=== PATIENT | female | born 1955 | race Caucasian/White ===

== ENCOUNTER 2016-07-24 08:57 | Emergency (ER) | payer BC ==
[~2016-07-24] VITALS: Ht 167.6 cm; Wt 119.2 kg
[~2016-07-24 08:57] MED LIST: ASPIRIN325 MG PO; CARDIZEM120 MG PO; CARVEDILOL6.25 MG PO; CLOPIDOGREL75 MG PO; DILAUDID2 MG PO; HYDROCHLOROTHIA25 MG PO; IRON325 MG PO; LANTUS 10100 UNITS/ SC; LEVAQUIN750 MG PO; LIDODERM 5% P1 PATCH TD; LISINOPRIL20 MG PO; LISINOPRIL30 MG PO; METFORMIN HCL1000 MG PO; MOBIC15 MG PO; NOVOLOG 10100 UNITS/ SC; PERCOCET 5/31 TABLET PO; PLAQUENIL200 MG PO; PRENATAL TABLE1 EAC3 PO; PROTONIX20 MG PO; SYNTHROID100 MCG PO; ULTRAM50 MG PO; VITAMIN D31000 UNIT PO; ZOCOR10 MG PO; ZOLOFT100 MG PO; ZOLOFT50 MG PO
[2016-07-24 09:33] LABS: POINT-OF-CARE METER ID UU13113702
[2016-07-24 09:38] LABS: HEMATOCRIT 33.9 % (36.0-46.0); MCH 26.2 PG (29.0-34.0); MCHC 32.7 G/DL (30.0-36.0); MEAN PLAT.VOLUME 10.3 uM^3 (9.5-12.4); PLATELET COUNT 363 K/uL (156-360); RBC DIS.WIDTH-CV 12.8 % (11.8-14.6); RBC DIS.WIDTH-SD 36.8 % (39-53); RED BLOOD COUNT 4.24 M/uL (3.80-5.20); WHITE BLOOD COUNT 25.4 K/uL (4.1-10.2)
[2016-07-24 09:49] LABS: CHLORIDE 94 mEq/L (99-109); POTASSIUM 4.4 mEq/L (3.7-5.4); SODIUM 127 mEq/L (136-147)
[2016-07-24 09:50] LABS: GLUCOSE 166 mg/dL (70-99)
[2016-07-24 09:52] LABS: ANION GAP 11 MEQ/L (2-14)
[2016-07-24 09:54] LABS: GFR ESTIMATE (CALCULATED) 29 mL/min/
[2016-07-24 09:55] LABS: UREA NITROGEN (BUN) 35 mg/dL (9-23)
[2016-07-24 10:35] LABS: EOSINOPHIL (%) 0.3 % (0-5); EOSINOPHIL COUNT 0.1 K/uL (0-0.3); HEMATOLOGY COMMENT 1 SMEAR COMPATIBLE; IMMATURE GRANULOCYTE (%) 1.2 % (0.0-0.7); LYMPHOCYTE COUNT 1.3 K/uL (1.0-2.8); MONOCYTE (%) 8.6 % (3-12); MONOCYTE COUNT 2.2 K/uL (0-0.8); NEUTROPHIL (%) 84.5 % (45-76); NEUTROPHIL COUNT 21.5 K/uL (1.8-6.4); USER ID STC
[2016-07-24] MEDS ORDERED: VITAMIN D33000 UNIT PO (12:56)
[2016-07-24] MEDS ORDERED: ZOCOR40 MG PO (12:57)
[2016-07-24] MEDS ORDERED: CLINDAMYCIN HC300 MG PO (13:00)
[2016-07-24] MEDS ORDERED: LOPID600 MG PO (13:02)
[2016-07-24] MEDS ORDERED: MAGNESIUM250 MG PO (13:02)
[2016-07-24] MEDS ORDERED: CYANOCOBALAM1000 MCG PO (13:02)
[2016-07-24] MEDS ORDERED: PROVENTIL,2.5 MG/3 M IH (13:04)
[2016-07-24 14:45] LABS: ADD MIUA? YES; BILIRUBIN SMALL; BLOOD NEGATIVE; COLOR DK YELLOW ((YELLOW)); GLUCOSE (STRIP) NEGATIVE; KETONES TRACE; LEUKOCYTES SMALL; NITRITE NEGATIVE; PROTEIN (STRIP) 30; SPECIFIC GRAVITY 1.029 (1.000-1.030); UROBILINOGEN 0.2 MG/DL (0.2-1.0)
[2016-07-24 14:58] LABS: CASTS PRESENT /LPF; EPITHELIAL CELLS 1+; HYALINE CASTS 20-25 /LPF
[2016-07-24 14:59] LABS: AMORPHOUS URATES CRYSTALS 1+; BACTERIA RARE; CRYSTALS PRESENT; MUCUS RARE; RED BLOOD CELLS 0-5 /HPF (0-5); UCUL ADDED? NO
[2016-07-24 15:03] VITALS: BP 114/72
== END 2016-07-24 15:04 | disposition short-term general hospital (02) ==
LOC: EME 08:57
PROVIDERS: Physician Assistant
DX: A41.9 Sepsis, unspecified organism (principal); R65.21 Severe sepsis with septic shock; L02.31 Cutaneous abscess of buttock; I95.9 Hypotension, unspecified; I25.10 Atherosclerotic heart disease of native coronary artery without angina pectoris; I10 Essential (primary) hypertension; E11.9 Type 2 diabetes mellitus without complications; E03.9 Hypothyroidism, unspecified; I25.2 Old myocardial infarction; Z79.4 Long term (current) use of insulin; Z95.5 Presence of coronary angioplasty implant and graft; Z91.040 Latex allergy status
CPT/HCPCS: 71020; 74176; 80048; 81003; 82948; 83605; 85025; 86850; 86900; 86901; 87040; 87076; 87185; 87801; 99281; 99285; J0692; J3010; J3370; J7030; J7050; J7120

== ENCOUNTER 2017-11-29 14:45 | Observation (INO) | payer BC ==
[~2017-11-29] VITALS: Ht 170.2 cm; Wt 115.0 kg
[~2017-11-29 14:45] MED LIST changes: +CLINDAMYCIN HC300 MG PO; +CYANOCOBALAM1000 MCG PO; +LOPID600 MG PO; +MAGNESIUM250 MG PO; +PROVENTIL,2.5 MG/3 M IH; +VITAMIN D33000 UNIT PO; +ZOCOR40 MG PO
[2017-11-29 15:28] LABS: HEMOGLOBIN 13.6 G/DL (11.9-15.5); MCHC 32.4 G/DL (30.0-36.0); MCV 77.2 FL (83-99); PLATELET COUNT 279 K/uL (156-360); RBC DIS.WIDTH-SD 44.2 % (39-53); RED BLOOD COUNT 5.44 M/uL (3.80-5.20); WHITE BLOOD COUNT 8.1 K/uL (4.1-10.2)
[2017-11-29 15:35] LABS: CHLORIDE 99 mEq/L (99-109); SODIUM 135 mEq/L (136-147)
[2017-11-29 15:36] LABS: GLUCOSE 208 mg/dL (70-99)
[2017-11-29 15:40] LABS: CREATININE 0.8 mg/dL (0.6-1.3); GFR ESTIMATE (CALCULATED) > 59 mL/min/
[2017-11-29 15:41] LABS: UREA NITROGEN (BUN) 14 mg/dL (9-23)
[2017-11-29] MEDS ORDERED: FLONASE16 G1 BOTH NARES (16:04)
[2017-11-29 20:44] LABS: SERUM ETHYL ALCOHOL < 10 mg/dL
[2017-11-29 21:25] VITALS: BP 187/77
[2017-11-30 04:15] VITALS: BP 154/74
[2017-11-30 07:42] VITALS: BP 132/71
[2017-11-30 10:06] LABS: HDL CHOLESTEROL 35 MG/DL (Desirable>=50); LDL CHOLESTEROL 100 mg/dL (Desirable<100); NON-HDL CHOLESTEROL 150 mg/dL (Desirable<160); TOTAL CHOLESTEROL 185 mg/dL (Desirable<200); TRIGLYCERIDES 251 MG/DL (Normal: <150)
[2017-11-30 10:08] LABS: TROP-I INTERPRETATION NEGATIVE; TROPONIN-I < 0.01 ng/mL (0.0-0.30)
[2017-11-30 11:27] VITALS: BP 172/93
[2017-11-30 15:43] VITALS: BP 145/84
[2017-11-30] MEDS ORDERED: HYDRALAZINE HCL25 MG PO (17:35)
== END 2017-11-30 18:45 | disposition home or self-care (01) ==
LOC: EXP 14:45 → EME 14:45 → EDOF 19:16 → 4SOUTH 19:16 → EDOF 19:16 → ENRESERV 19:36 → 4SOUTH 21:09
PROVIDERS: Hospitalist; Physician Assistant Medical
DX: R51 Headache (principal); I10 Essential (primary) hypertension; R20.2 Paresthesia of skin; R41.0 Disorientation, unspecified; E11.65 Type 2 diabetes mellitus with hyperglycemia; E11.51 Type 2 diabetes mellitus with diabetic peripheral angiopathy without gangrene; E87.1 Hypo-osmolality and hyponatremia; R07.89 Other chest pain; I25.10 Atherosclerotic heart disease of native coronary artery without angina pectoris; I25.2 Old myocardial infarction; Z95.5 Presence of coronary angioplasty implant and graft; Z79.82 Long term (current) use of aspirin; E66.01 Morbid (severe) obesity due to excess calories; Z68.39 Body mass index [BMI] 39.0-39.9, adult; E78.5 Hyperlipidemia, unspecified; E03.9 Hypothyroidism, unspecified; J45.909 Unspecified asthma, uncomplicated; M79.7 Fibromyalgia; I70.0 Atherosclerosis of aorta; M06.9 Rheumatoid arthritis, unspecified; Z79.4 Long term (current) use of insulin; K21.9 Gastro-esophageal reflux disease without esophagitis; Z98.890 Other specified postprocedural states; Z90.49 Acquired absence of other specified parts of digestive tract; Z90.710 Acquired absence of both cervix and uterus; Z82.49 Family history of ischemic heart disease and other diseases of the circulatory system; Z91.040 Latex allergy status; Z91.048 Other nonmedicinal substance allergy status
CPT/HCPCS: 70450; 70551; 71046; 80048; 80061; 80306 90; 81003; 82948; 83036; 84484; 85027; 93005; 99281; 99285; G0378; G0480; G8978 GP CH; G8979 GP CH; G8980 GP CH; G8987 GO CH; G8988 GO CH; G8989 GO CH; J1650